=== PATIENT | male | born 1995 | race African-American/Black ===

== ENCOUNTER 2021-11-28 02:00 | Emergency (ER) | payer SELFPAY ==
[2021-11-28] MEDS ORDERED: Acetaminophen 500 MG TAB ONE (02:34)
== END 2021-11-28 04:47 | disposition home or self-care (01) ==
LOC: ERS 02:00
DX: R51.9 Headache, unspecified (principal); R07.81 Pleurodynia; M25.552 Pain in left hip; Y04.8XXA Assault by other bodily force, initial encounter
CPT/HCPCS: 70450; 71045; 72125